=== PATIENT | female | born 1965 | race Caucasian/White ===

== ENCOUNTER 2018-12-31 11:06 | Inpatient (IN) | payer MEDICAID ==
[~2018-12-31] VITALS: Ht 152.4 cm; Wt 67.1 kg
[2018-12-31 11:08] VITALS: Ht 152.4 cm; Wt 67.1 kg
[2018-12-31 15:06] LABS: BASOPHIL % 0.8 % (0-2); PLATELET COUNT 245 x10^3mcL (130-400)
[2018-12-31 15:20] LABS: CALCIUM 8.7 mg/dL (8.5-10.1); CARBON DIOXIDE 26.6 mmol/L (21-32); CHLORIDE SERUM 107 mmol/L (98-107); CREATININE SERUM 0.4 mg/dL (0.6-1.0); GFR1 > 60 mL/min; GLUCOSE SERUM 94 mg/dL (74-106); POTASSIUM SERUM 3.8 mmol/L (3.5-5.1); SODIUM SERUM 142 mmol/L (136-145)
[2018-12-31 15:26] LABS: ALBUMIN 3.6 g/dL (3.4-5.0); ALKALINE PHOSPHATASE 134 U/L (46-116); AST/SGOT 20 U/L (15-37); BILIRUBIN TOTAL 0.51 mg/dL (0.20-1.00); TOTAL PROTEIN, SERUM 8.1 g/dL (6.4-8.2)
[2018-12-31 15:48] LABS: ALT/SGPT 32 U/L (14-59)
[2018-12-31 17:16] LABS: CHOLESTEROL/HDL RATIO 4.3; MAGNESIUM 2.3 mg/dL (1.8-2.4); PHOSPHOROUS 4.1 mg/dL (2.5-4.9)
[2018-12-31 17:24] LABS: T3 TOTAL 1.21 ng/mL
[2018-12-31 17:41] VITALS: BP 136/70
[2018-12-31 17:53] LABS: FREE T4 1.1 ng/dL (0.76-1.46); FREE THYROXINE INDEX 2.6 ug/dL (1.4-4.5); T4(THYROXINE) 7.3 ug/dL (4.7-13.3)
[2018-12-31 20:30] VITALS: BP 123/57
[2018-12-31 21:05] LABS: microscopic required? YES; urine erythrocyte TRACE (NEGATIVE)
[2018-12-31 21:16] LABS: AMPHETAMINE QUAL UR NONE DETECTED (See below)
[2019-01-01 05:26] VITALS: BP 95/46
[2019-01-01 06:41] LABS: BASOPHIL % 0.9 % (0-2); PLATELET COUNT 206 x10^3mcL (130-400); RED CELL DISTRIBUTION WIDTH 12.9 % (11.5-14.5)
[2019-01-01 07:55] VITALS: BP 109/56
[2019-01-01 11:01] LABS: CALCIUM 8.7 mg/dL (8.5-10.1); CARBON DIOXIDE 25.2 mmol/L (21-32); CHLORIDE SERUM 107 mmol/L (98-107); CREATININE SERUM 0.5 mg/dL (0.6-1.0); GFR1 > 60 mL/min; GLUCOSE SERUM 96 mg/dL (74-106); PHOSPHOROUS 4.3 mg/dL (2.5-4.9); POTASSIUM SERUM 3.9 mmol/L (3.5-5.1); SODIUM SERUM 141 mmol/L (136-145)
[2019-01-01 11:07] LABS: MAGNESIUM 2.3 mg/dL (1.8-2.4)
[2019-01-01 12:05] VITALS: BP 112/57
[2019-01-01 16:06] VITALS: BP 114/66
[2019-01-01 20:13] VITALS: BP 104/59
[2019-01-02 05:10] VITALS: BP 113/72
[2019-01-02 07:46] VITALS: BP 105/54
[2019-01-02 11:45] VITALS: BP 114/63
[2019-01-02] MEDS ORDERED: MOT400 PO (14:48)
== END 2019-01-02 16:04 | disposition home or self-care (01) | DRG 203 ==
LOC: ED 11:06 → DU 16:52 → MU 01-02 14:11
PROVIDERS: Emergency Medicine; ADMIT General Practice
DX: M94.0 Chondrocostal junction syndrome [Tietze] (principal); J84.10 Pulmonary fibrosis, unspecified; K21.9 Gastro-esophageal reflux disease without esophagitis; R00.1 Bradycardia, unspecified; I10 Essential (primary) hypertension; E78.5 Hyperlipidemia, unspecified; E78.00 Pure hypercholesterolemia, unspecified; Z82.49 Family history of ischemic heart disease and other diseases of the circulatory system
CPT/HCPCS: 83880; 84439; 85378; 90658; G0378; J1885; J7030

== ENCOUNTER 2019-04-23 21:13 | Emergency (ER) | payer MEDICAID ==
[~2019-04-23] VITALS: Ht 157.5 cm; Wt 77.1 kg
[~2019-04-23 21:13] MED LIST: MOT400 PO
[2019-04-23 21:19] VITALS: Ht 157.5 cm; Wt 77.1 kg
[2019-04-24 00:44] VITALS: BP 132/72
== END 2019-04-24 00:44 | disposition home or self-care (01) ==
LOC: ED 21:13
DX: J40 Bronchitis, not specified as acute or chronic (principal); E78.00 Pure hypercholesterolemia, unspecified; Z86.2 Personal history of diseases of the blood and blood-forming organs and certain disorders involving the immune mechanism